=== PATIENT | female | born 1965 | race Caucasian/White ===

== ENCOUNTER 2019-07-26 09:11 | Emergency (ER) | payer BC ==
--- OUTSIDE RECORDS SUMMARY | 2019-07-26 09:15 | XMS REPORT ---
:1965 Author Organization eClinicalWorks Care Team Providers Name Role Phone Irma Graham Provider Role Unavailable Allergies No Known Allergies Problems Problem Type Condition Code Onset Dates Condition Status Problem Hypocalcemia E83.51 Active Problem Nausea R11.0 Active Problem Depression with anxiety F41.8 Active Problem MIRIAM (obstructive sleep apnea) G47.33 Active Problem Sinusitis chronic, frontal J32.1 Active Problem Dizziness R42 Active Problem Urinary tract infection, site not N39.0 Active specified Problem Fever, unspecified fever cause R50.9 Active Problem Seasonal allergic rhinitis due to J30.1 Active pollen Problem Encounter for immunization Z23 Active Problem Allergic rhinitis, seasonal J30.2 Active Problem Hypertension I10 Active Problem Hyperlipidemia E78.5 Active Problem Abnormal LFTs R94.5 Active Problem Vitamin D deficiency E55.9 Active Medications Medication Code Code Instructions Start End Date Status Dosage System Date Diclofenac [facility] 50945274631 75 MG Orally Jul 23, Aug 22, Active 1 tablet Sodium Twice a day 2018 2018 with food or milk Results No Known Results Summary Purpose eClinicalWorks Submission
--- OUTSIDE RECORDS SUMMARY | 2019-07-26 09:15 | XMS REPORT ---
:1965 Author Organization e[employer] Care Team Providers Name Role Phone Irma Graham Provider Role Unavailable Allergies, Adverse Reactions, Alerts Substance Reaction Event Type N.K.D.A. Info Not Available Non Drug Allergy Problems Problem Type Condition Code Onset Dates [...] pollen Problem Encounter for immunization Z23 Active Assessment MIRIAM (obstructive sleep apnea) G47.33 Active Assessment Hypertension I10 Active Assessment Dizziness R42 Active Problem Allergic rhinitis, seasonal J30.2 Active Problem Hypertension I10 Active Problem Hyperlipidemia E78.5 Active Problem Abnormal LFTs R94.5 Active Problem Vitamin D deficiency E55.9 Active Medications Medication Code Code Instructions Start End Status Dosage System Date Date Vitamin D [facility] 21267738643 2000 UNIT Orally Active 1 tablet Once a day BuPROPion HCl [facility] 88439689433 300 MG Orally Active take 1 ER (XL) Once a day tablet daily Zofran [facility] 90870449332 8 MG Orally Active 1 tablet every 8 hours for N/V Albuterol [facility] 93817305483 108 (90 Base) Active 2 puffs as Sulfate HFA MCG/ACT needed Inhalation every 6 hrs [place] [address] [facility] 22103798079 1000 MG Orally Active 1 capsule Once a day Aspirin Adult [facility] 14577949124 81 MG Orally Active 1 tablet Low Strength Once a day Valsartan-Hydr [facility] 17006138768 320-25 MG Orally Active take 1 ochlorothiazid Once a day tablet e daily Lovastatin [facility] 09647635640 10 MG Orally Active 1 tablet Once a day with a meal Results No Known Results Summary Purpose eClinicalWorks Submission
[2019-07-26 10:20] LABS: Absolute Lymphocytes (CBC) 1.4 K/uL (0.7-4.9); Basophils % 1.3 % (0-1.3); Hematocrit 38.9 % (36.0-45.0); Lymphocytes % 33.3 % (15.3-44.8); MPV 8.3 fL (7.6-11.3); RBC Red Blood Cell Count 4.13 M/uL (3.86-4.86)
--- NOTE | 2019-07-26 10:20 | RAD REPORT ---
EXAM DESCRIPTION: CT - Head Brain Wo Cont - 07/26/2019 10:11 am CLINICAL HISTORY: HTN Headache Hypertension, headache, drowsiness COMPARISON: CT-STROKE BRAIN W/O CONTRAST dated 03/15/2015 TECHNIQUE: All CT scans are performed using dose optimization technique as appropriate and may inclu de automated exposure control or mA/KV adjustment according to patient size. FINDINGS: No intracranial hemorrhage, hydrocephalus or extra-axial fluid collection.No areas of brai n edema or evidence of midline shift. The paranasal sinuses and mastoids are clear. The calvarium is intact. IMPRESSION: No acute intracranial abnormality.
[2019-07-26 10:33] LABS: Potassium 3.5 mmol/L (3.5-5.1)
--- NOTE | 2019-07-26 11:08 | ER ---
Nurse's Notes [facility] Name: Emily Husain Age: 53 yrs Sex: Female : 1965 Arrival Date: 07/26/2019 Time: 09:13 Bed 2 Private MD: Diagnosis: Hypertensive heart disease;Dizziness and giddiness Presentation: 07/26 09:23 Presenting complaint: Patient states: has been having issues with BP, was due for sleep iw study bc her doctor thought she has sleep apnea, BP seems to spike intermittently throughout day, this morning she felt her BP go up while lying in bed, felt dizzy, nauseous, BP reading was 165/101, +headache, has not had any changes to BP medicine, denies chest pain. Transition of care: patient was not received from another setting of care. Onset of symptoms was 2018. Risk Assessment: Do you want to hurt yourself or someone else? Patient reports no desire to harm self or others. Initial Sepsis Screen: Does the patient meet any 2 criteria? No. Patient's initial sepsis screen is negative. Does the patient have a suspected source of infection? No. Patient's initial sepsis screen is negative. Care prior to arrival: None. 09:23 Method Of Arrival: Ambulatory iw 09: Acuity: SHAWNA 3 iw ADVANCED PRACTICE NURSE: : LMP N/A - Hysterectomy iw Historical: - Allergies: : No Known Allergies; iw - Home Meds: : bupropion HCl 300 mg Oral Tb24 1 tab once daily [Active]; valsartan-hydrochlorothiazide iw 320-25 mg Oral tab 1 tab once daily [Active]; - PMHx: : Hypertension; iw - PSHx: : ; Hysterectomy; foot sx; back sx; iw - Immunization history:: Adult Immunizations not up to date. - Social history:: Smoking status: Patient/guardian denies using tobacco. - Ebola Screening: : Patient negative for fever greater than or equal to 101.5 degrees Fahrenheit, and additional compatible Ebola Virus Disease symptoms Patient denies exposure to infectious person Patient denies travel to an Ebola-affected area in the 21 days before illness onset No symptoms or risks identified at this time. Screenin:17 Abuse screen: Denies threats or abuse. Denies injuries from another. Nutritional sg screening: No deficits noted. Tuberculosis screening: No symptoms or risk factors identified. Never had TB. Fall Risk None identified. Assessment: 10:15 Reassessment: Patient appears in no apparent distress at this time. Patient and/or sg family updated on plan of care and expected duration. Pain level reassessed. Patient is alert, oriented x 3, equal unlabored respirations, skin warm/dry/pink. pt returned from CT at this time, placed back to monitors, bed in low and locked position, SRX1, orders to monitor VS per . Vital Signs: 09:26 BP 147 / 87; Pulse 69; Resp 16; Temp 98.4; Pulse Ox 98% on R/A; Weight 81.65 kg; Height iw 5 ft. 2 in. (157.48 cm); Pain 0/10; 10:04 BP 143 / 76; Pulse 70; Resp 17; Pulse Ox 100% on R/A; Pain 0/10; sg 10:23 BP 129 / 80; Pulse 65; Resp 16; Temp 98.2; Pulse Ox 98% on R/A; Pain 0/10; sg 09:26 Body Mass Index 32.92 (81.65 kg, 157.48 cm) iw ED Course: 09:13 Patient arrived in ED. mr 09:23 Marcus Jensen MD is Attending Physician. kdr 09:25 Triage completed. iw 09:26 Arm band placed on. iw 09:31 Dylan Nicolas, RN is Primary Nurse. sg 10:11 CT completed. Patient tolerated procedure well. Patient moved back from CT. bq 10:12 CT Head Brain wo Cont In Process Unspecified. EDMS 10:15 No provider procedures requiring assistance completed. sg 10:24 Patient has correct armband on for positive identification. Placed in gown. Bed in low mh5 position. Call light in reach. Side rails up X 1. Adult w/ patient. Warm blanket given. Pulse ox on. NIBP on. 11:15 IV discontinued, intact, bleeding controlled, No redness/swelling at site. Pressure sg dressing applied. Administered Medications: No medications were administered Outcome: 11:06 Discharge ordered by . kdr 11:15 Discharged to home ambulatory. sg 11:15 Condition: good 11:15 Discharge instructions given to patient, Instructed on discharge instructions, follow up and referral plans. safety practices, Demonstrated understanding of instructions, follow-up care. 11:18 Patient left the ED. iw Signatures: Dispatcher [employer] Dylan Calix RN RN sg Rittger, Kevin, MD MD kdr Rivera, Mary mr Alanna, Simran Huddleston RN RN iw Martinez, Maria [facility]
--- NOTE | 2019-07-26 11:08 | EDPHYS ---
Physician Documentation [facility] Name: Emily Husain Age: 53 yrs Sex: Female : 1965 Arrival Date: 07/26/2019 Time: 09:13 Bed 2 Private MD: ED Physician Marcus Jensen HPI: 07/26 09:52 This 53 yrs old Female presents to ER via Ambulatory with complaints of High kdr Blood Pressure. 09:53 The patient has been noting that her BP has been intermittently high with SBP up to 150 kdr - 190. She has also been dizzy for the last two months and had intermittent mild JOSHI. Onset: The symptoms/episode began/occurred gradually, 2 week(s) ago. Severity of symptoms: At their worst the symptoms were mild moderate just prior to arrival, in the emergency department the symptoms are unchanged. The patient has not experienced similar symptoms in the past. The patient has been recently seen by a physician: Seen by Gabbi Graham and was schedule for a sleep study about three weeks ago but has yet to occur. 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 - Social history:: Smoking status: Patient/guardian denies using tobacco. - Ebola Screening: : Patient negative for fever greater than or equal to 101.5 degrees Fahrenheit, and additional compatible Ebola Virus Disease symptoms Patient denies exposure to infectious person Patient denies travel to an Ebola-affected area in the 21 days before illness onset No symptoms or risks identified at this time. ROS: 09:53 Constitutional: Negative for fever, chills, and weight loss, Eyes: Negative for injury, kdr pain, redness, and discharge, ENT: Negative for injury, pain, and discharge, Neck: Negative for injury, pain, and swelling, Cardiovascular: Negative for chest pain, palpitations, and edema, Respiratory: Negative for shortness of breath, cough, wheezing, and pleuritic chest pain, Abdomen/GI: Negative for abdominal pain, nausea, vomiting, diarrhea, and constipation, Back: Negative for injury and pain, : Negative for injury, bleeding, discharge, and swelling, MS/Extremity: Negative for injury and deformity, Skin: Negative for injury, rash, and discoloration, Psych: Negative for depression, anxiety, suicide ideation, homicidal ideation, and hallucinations, Allergy/Immunology: Negative for hives, rash, and allergies, Endocrine: Negative for neck swelling, polydipsia, polyuria, polyphagia, and marked weight changes, Hematologic/Lymphatic: Negative for swollen nodes, abnormal bleeding, and unusual bruising. 09:53 Neuro: Positive for dizziness, headache, Negative for altered mental status, gait disturbance, loss of consciousness, numbness, seizure activity, speech changes, syncope, near syncope, tinnitus, tremor, visual changes, weakness. Exam: 09:53 Constitutional: This is a well developed, well nourished patient who is awake, alert, kdr and in no acute distress. Head/Face: Normocephalic, atraumatic. Eyes: Pupils equal round and reactive to light, extra-ocular motions intact. Lids and lashes normal. Conjunctiva and sclera are non-icteric and not injected. Cornea within normal limits. Periorbital areas with no swelling, redness, or edema. Neck: Trachea midline, no thyromegaly or masses palpated, and no cervical lymphadenopathy. Supple, full range of motion without nuchal rigidity, or vertebral point tenderness. No Meningismus. Chest/axilla: Normal chest wall appearance and motion. Nontender with no deformity. No lesions are appreciated. Cardiovascular: Regular rate and rhythm with a normal S1 and S2. No gallops, murmurs, or rubs. Normal PMI, no JVD. No pulse deficits. Respiratory: Lungs have equal breath sounds bilaterally, clear to auscultation and percussion. No rales, rhonchi or wheezes noted. No increased work of breathing, no retractions or nasal flaring. Abdomen/GI: Soft, non-tender, with normal bowel sounds. No distension or tympany. No guarding or rebound. No evidence of tenderness throughout. Back: No spinal tenderness. No costovertebral tenderness. Full range of motion. Skin: Warm, dry with normal turgor. Normal color with no rashes, no lesions, and no evidence of cellulitis. MS/ Extremity: Pulses equal, no cyanosis. Neurovascular intact. Full, normal range of motion. Neuro: Awake and alert, GCS 15, oriented to person, place, time, and situation. Cranial nerves II-XII grossly intact. Motor strength 5/5 in all extremities. Sensory grossly intact. Cerebellar exam normal. Normal gait. Psych: Awake, alert, with orientation to person, place and time. Behavior, mood, and affect are within normal limits. Vital Signs: 09:26 BP 147 / 87; Pulse 69; Resp 16; Temp 98.4; Pulse Ox 98% on R/A; Weight 81.65 kg; Height iw 5 ft. 2 in. (157.48 cm); Pain 0/10; 10:04 BP 143 / 76; Pulse 70; Resp 17; Pulse Ox 100% on R/A; Pain 0/10; sg 10:23 BP 129 / 80; Pulse 65; Resp 16; Temp 98.2; Pulse Ox 98% on R/A; Pain 0/10; sg 09:26 Body Mass Index 32.92 (81.65 kg, 157.48 cm) iw MDM: 09:53 Data reviewed: vital signs, nurses notes, lab test result(s), radiologic studies. kdr Counseling: I had a detailed discussion with the patient and/or guardian regarding: the historical points, exam findings, and any diagnostic results supporting the discharge/admit diagnosis, lab results, radiology results, the need for outpatient follow up. 11:06 Patient medically screened. kdr 07/26 09:50 Order name: CBC with Diff; Complete Time: 11:02 kdr 07/26 09:50 Order name: Chem 7; Complete Time: 11:02 kdr 07/26 09:50 Order name: CT Head Brain wo Cont; Complete Time: 11: kdr Administered Medications: No medications were administered Disposition: 07/26/19 11:06 Discharged to Home. Impression: Hypertensive heart disease, Dizziness and giddiness. - Condition is Stable. - Discharge Instructions: Dizziness, Hypertension, [id number]. - Prescriptions for Meclizine 25 mg Oral Tablet - take 1 tablet by ORAL route every 8 hours As needed; 30 tablet. - Medication Reconciliation Form, Thank You Letter form. - Follow up: Private Physician; When: 2 - 3 days; Reason: If symptoms return, Further diagnostic work-up, Recheck today's complaints, Continuance of care, Re-evaluation by your physician. - Problem is an ongoing problem. - Symptoms have improved. Signatures: Dispatcher [employer] EDMarcus Alvarez MD MD kdr Simran Jenkins RN RN iw Corrections: (The following items were deleted from the chart) 11:18 11:06 07/26/2019 11:06 Discharged to Home. Impression: Hypertensive heart disease; iw Dizziness and giddiness. Condition is Stable. Forms are Medication Reconciliation Form, Thank You Letter, Antibiotic Education, Prescription Opioid Use. Follow up: Private Physician; When: 2 - 3 days; Reason: If symptoms return, Further diagnostic work-up, Recheck today's complaints, Continuance of care, Re-evaluation by your physician. Problem is an ongoing problem. Symptoms have improved. kdr
[2019-07-26 11:25] VITALS: BP 129/80; TEMP 98.2; O2SAT 98
== END 2019-07-26 11:18 | disposition home or self-care (01) ==
LOC: ER 09:11
DX: I11.9 Hypertensive heart disease without heart failure (principal); I10 Essential (primary) hypertension
CPT/HCPCS: 36415; 70450; 80048; 85025; 99284